=== PATIENT | female | born 1950 | race Caucasian/White ===

== ENCOUNTER 2018-10-28 15:24 | Emergency (ER) | payer OTHER ==
[~2018-10-28] VITALS: Ht 162.6 cm; Wt 72.1 kg
[~2018-10-28 15:24] MED LIST: LIPITOR20 MG; LOSARTAN-HCTZ1 EAC1; WELLBUTRIN SR100 MG; [UNRECOGNIZED DRUG - OTHER]
== END 2018-10-28 20:58 | disposition home or self-care (01) ==
LOC: ER 15:24
DX: S20.211A Contusion of right front wall of thorax, initial encounter (principal); S70.01XA Contusion of right hip, initial encounter; W03.XXXA Other fall on same level due to collision with another person, initial encounter; Y93.89 Activity, other specified; Y92.69 Other specified industrial and construction area as the place of occurrence of the external cause; Y99.8 Other external cause status

== ENCOUNTER 2019-08-08 14:25 | Outpatient (CLI) | payer OTHER | END 2019-08-08 14:29 | disposition home or self-care (01) | LOC: MRI 14:25 | DX: M17.0 Bilateral primary osteoarthritis of knee (principal) | CPT/HCPCS: 73718 ==

== ENCOUNTER 2020-04-09 10:26 | Emergency (ER) | payer OTHER ==
[~2020-04-09] VITALS: Ht 157.5 cm; Wt 70.8 kg
[2020-04-09] MEDS ORDERED: PROTONIX40 MG PO (10:41)
[2020-04-09] MEDS ORDERED: ZOFRAN4 MG PO (22:18)
[2020-04-09] MEDS ORDERED: MECLIZINE HCL25 MG PO (22:18)
== END 2020-04-09 22:23 | disposition home or self-care (01) ==
LOC: ER 10:26
DX: R42 Dizziness and giddiness (principal); E87.1 Hypo-osmolality and hyponatremia; Z03.818 Encounter for observation for suspected exposure to other biological agents ruled out

== ENCOUNTER 2022-03-24 11:25 | Outpatient (CLI) | payer OTHER ==
[~2022-03-24 11:25] MED LIST changes: +MECLIZINE HCL25 MG PO; +PROTONIX40 MG PO; +ZOFRAN4 MG PO
== END 2022-03-24 14:52 | disposition home or self-care (01) ==
LOC: LAB 11:25
PROVIDERS: ATTEND Internal Medicine
DX: I10 Essential (primary) hypertension (principal); Z01.810 Encounter for preprocedural cardiovascular examination

== ENCOUNTER 2024-07-24 14:29 | Inpatient (IN) | payer OTHER ==
[~2024-07-24] VITALS: Ht 167.6 cm; Wt 72.1 kg
[2024-07-24] MEDS ORDERED: COZAAR50 MG PO (15:48)
[2024-07-24] MEDS ORDERED: LIPITOR40 MG PO (15:48)
[2024-07-24] MEDS ORDERED: WELLBUTRIN XL300 MG PO (15:48)
[2024-07-24] MEDS ORDERED: CLONAZEPAM0.5 MG PO (15:48)
[2024-07-24] MEDS ORDERED: SEROQUEL50 MG PO (15:49)
[2024-07-24] MEDS ORDERED: ONDANSETRON HCL 2 MG/ML VIAL ONE (17:20)
[2024-07-24 17:27] LABS: HEMATOCRIT 38.7 % (36.0-45.00); HEMOGLOBIN 13.5 g/dL (12.0-15.00); MEAN CELL VOLUME 87.9 fL (80.00-100.00); MEAN CORPUSCULAR HEMOGLOBIN 30.8 pg (27.00-32.0); PLATELET COUNT 222 K/uL (150-450); RED CELL DISTRIBUTION WIDTH 13.8 % (11.5-14.5)
[2024-07-24 17:43] LABS: URINE APPEARANCE Clear; URINE BILIRRUBIN Negative (NEGATIVE); URINE BLOOD Small; URINE COLOR Yellow; URINE GLUCOSE Negative (NEGATIVE); URINE KETONE Trace (NEGATIVE); URINE LEUKOCYTE Negative; URINE NITRATE Negative; URINE PROTEIN Negative (NEGATIVE); URINE UROBILINOGEN 0.2 E.U./dl
[2024-07-24 17:49] LABS: ALBUMIN 3.7 gm/dL (3.4-5.0); BILIRUBIN TOTAL 0.51 mg/dL (0.3-1.2); CALCIUM 8.9 mg/dL (8.5-10.1); CREATININE SERUM 0.54 mg/dL (0.55-1.02); GFR 110.66; GLOBULINA 3.9 G/DL (2.4-3.5); POTASSIUM 3.94 mEq/L (3.5-5.1); TOTAL PROTEIN 7.6 gm/dL (6.4-8.2)
[2024-07-24 17:50] LABS: URINE RBC 36.6 uL (0.0-20.8)
[2024-07-24 17:52] LABS: URINE BACTERIA 3.6 uL (0.0-1933); URINE EPITHELIAL CELLS 1.1 uL (0.0-38.8); URINE WBC 1.4 uL (0.0-23.2)
[2024-07-24] MEDS ORDERED: 0.9 % SODIUM CHLORIDE 1,000 ML IV SCH ×2 (18:00→19:30)
[2024-07-24] MEDS ORDERED: ACETAMINOPHEN 500 MG GEL..CAP PO PRN (19:30)
[2024-07-24] MEDS ORDERED: CLONAZEPAM 0.5 MG TABLET PO SCH (21:00)
[2024-07-24 22:22] LABS: INR 0.95; PARTIAL THROMBOPLASTIN TIME 29.1 SECONDS (22.0-34.0); PROTHROMBIN TIME 10.4 SECONDS (9.0-11.5)
[2024-07-24 23:05] VITALS: BP 124/46; O2SAT 99
[2024-07-24 23:54] VITALS: BP 111/50; O2SAT 96
[2024-07-25 07:07] LABS: CREATININE SERUM 0.4 mg/dL (0.55-1.02); GFR 156.46; MAGNESIUM 2.4 mg/dL (1.8-2.4); PHOSPHOROUS 2.5 mg/dL (2.5-4.9); POTASSIUM 3.78 mEq/L (3.5-5.1)
[2024-07-25] MEDS ORDERED: FAMOTIDINE/PF 20 MG/2 ML VIAL ONE (07:38)
[2024-07-25 07:47] LABS: TSH 1.15 uIU/mL (0.358-3.74)
[2024-07-25 08:33] VITALS: BP 136/67; O2SAT 96
[2024-07-25] MEDS ORDERED: BUPROPION HCL 150 MG TABLET.SA PO SCH (09:00)
[2024-07-25] MEDS ORDERED: FAMOTIDINE/PF 20 MG in 0.9 % SODIUM CHLORIDE 8 ML IV PUSH SCH (09:00)
[2024-07-25] MEDS ORDERED: LOSARTAN POTASSIUM 50 MG TABLET PO SCH (09:00)
[2024-07-25] MEDS ORDERED: ATORVASTATIN CALCIUM 40 MG TABLET PO SCH (09:00)
[2024-07-25] MEDS ORDERED: QUETIAPINE FUMARATE 100 MG TABLET PO SCH ×2 (09:00→17:00)
[2024-07-25 10:01] LABS: CREATININE URINE RANDOM 30.6 MG/DL (30-125)
[2024-07-25 11:23] LABS: MYCOPLASMA PNEUMONIAE IGM NON REACTIVE (NO REACTIVE)
[2024-07-25 14:44] VITALS: BP 138/72; O2SAT 100
[2024-07-25 14:46] VITALS: O2SAT 97
[2024-07-25] MEDS ORDERED: CLONIDINE HCL 0.1 MG TABLET PO SCH (17:00)
[2024-07-25 17:42] VITALS: O2SAT 98
[2024-07-25 18:34] VITALS: BP 192/75
[2024-07-25 21:27] VITALS: O2SAT 93
[2024-07-26 00:42] VITALS: O2SAT 90
[2024-07-26 04:51] VITALS: BP 117/55
[2024-07-26 05:12] VITALS: O2SAT 90
[2024-07-26 09:35] VITALS: BP 119/68; O2SAT 98
[2024-07-26 11:12] LABS: CALCIUM 8.1 mg/dL (8.5-10.1); CREATININE SERUM 0.51 mg/dL (0.55-1.02); GFR 118.21; POTASSIUM 4.13 mEq/L (3.5-5.1)
[2024-07-26 14:13] LABS: ABG PH 7.448 (7.35-7.45); ABG PO2 112.1 mmHg (80-100); ABG pCO2 32.8 mmHg (35-45); BASE EXCESS -0.9 mmol/l; BICARBONATE 22.2 mmol/l (23-25); SaO2 98.6 %; Tco2 23.2 mmol/l; allen test SATISFACTORY; o2 21 %; puncture site RADIAL RIGHT
[2024-07-26 18:38] VITALS: BP 160/85; O2SAT 97
[2024-07-27 01:15] VITALS: BP 128/76
[2024-07-27 08:31] LABS: ALBUMIN 3.1 gm/dL (3.4-5.0); BILIRUBIN TOTAL 0.24 mg/dL (0.3-1.2); CALCIUM 8.1 mg/dL (8.5-10.1); CREATININE SERUM 0.51 mg/dL (0.55-1.02); CREATININE SERUM 0.56 mg/dL (0.55-1.02); GFR 106.11; GFR 118.21; PHOSPHOROUS 2.5 mg/dL (2.5-4.9); POTASSIUM 4.79 mEq/L (3.5-5.1); POTASSIUM 4.83 mEq/L (3.5-5.1); TOTAL PROTEIN 6.1 gm/dL (6.4-8.2)
[2024-07-27 11:06] VITALS: BP 148/70
== END 2024-07-27 12:12 | disposition home or self-care (01) | DRG 643 ==
LOC: ER 14:31 → SEC-K 20:58 → SURG 07-25 09:02 → SEC-K 07-25 10:27 → MEDJ 07-25 13:18
PROVIDERS: Emergency Medicine; General Practice; Internal Medicine Nephrology; ADMIT Internal Medicine; ATTEND Internal Medicine
PROC: 8E0ZXY6 Isolation (ICD-10-PCS; principal; 2024-07-25)
PROC: 4A12X4Z Monitoring of Cardiac Electrical Activity, External Approach (ICD-10-PCS; 2024-07-25)
DX: E22.2 Syndrome of inappropriate secretion of antidiuretic hormone (principal); U07.1 COVID-19; E07.81 Sick-euthyroid syndrome; I10 Essential (primary) hypertension; E78.5 Hyperlipidemia, unspecified; F41.8 Other specified anxiety disorders